=== PATIENT | male | born 1970 | race Caucasian/White ===

== ENCOUNTER 2020-03-30 12:31 | Inpatient (IN) | payer MEDICAID ==
[~2020-03-30] VITALS: Ht 182.9 cm; Wt 60.3 kg
[2020-03-30] MEDS ORDERED: SODIUM CHLORIDE 0.9% 1,000 ML IV ONE ×2 (13:08→16:30)
[2020-03-30 14:02] LABS: HEMATOCRIT. 50.9 % (42.0-52.0); HEMOGLOBIN. 18.2 g/dL (14.0-18.0); MEAN CORPUSCULAR HEMOGLOBIN 32.5 pg (28.0-32.0); MEAN CORPUSCULAR VOLUME 91.3 fL (80.0-94.0); MEAN PLATELET VOLUME 8.1 fl (7.4-10.4); PLATELET 250 x1000/uL (130-400); RED BLOOD CELL COUNT 5.58 mill/uL (4.7-6.1); RED CELL DISTRIBUTION WIDTH 14.2 % (11.6-14.6)
[2020-03-30] MEDS ORDERED: ONDANSETRON HCL 4MG/2ML INJ IV STA (14:04)
[2020-03-30] MEDS ORDERED: MORPHINE SULFATE 4 MG/ML CPJ (NOT FOR IM USE) IV STA (14:04)
[2020-03-30 14:10] LABS: CHLORIDE 99 mEq/L (98-107)
[2020-03-30 16:19] LABS: PLATELET ESTIMATE NORMAL
[2020-03-30 17:23] LABS: CLARITY URINE CLEAR (CLEAR); COLOR URINE YELLOW (YELLOW); KETONES URINE NEGATIVE (NEGATIVE); LEUKOCYTE ESTERASE URINE NEGATIVE (NEGATIVE); NITRITE URINE NEGATIVE (NEGATIVE); OCCULT BLOOD URINE 3+ (NEGATIVE); PH URINE 5.5 (4.5-8.0); PROTEIN URINE 2+ (NEGATIVE); SPECIFIC GRAVITY URINE 1.018 (1.005-1.030); UROBILINOGEN URINE 0.2 E.U./dL (0.2-1.0)
[2020-03-30] MEDS ORDERED: DIPHENHYDRAMINE 50MG/ML VIAL IV PRN (18:00)
[2020-03-30] MEDS ORDERED: ONDANSETRON HCL 4MG/2ML INJ IV PRN (18:00)
[2020-03-30] MEDS ORDERED: ACETAMINOPHEN 325MG TABLET PO PRN (18:00)
[2020-03-30] MEDS ORDERED: CLONIDINE 0.1MG TABLET PO PRN (18:00)
[2020-03-30] MEDS ORDERED: MORPHINE SULFATE 2 MG/ML CPJ (NOT FOR IM USE) IV PRN (18:00)
[2020-03-30 18:23] LABS: PHOSPHORUS 3.3 mg/dL (2.5-4.9)
[2020-03-30] MEDS ORDERED: PIPERACILLIN/TAZ 3.375G PREMIX 50 ML IV SCH (18:30)
[2020-03-30 21:42] VITALS: BP 99/63
[2020-03-30] MEDS ORDERED: TAMS-11 MT (23:59)
[2020-03-31] MEDS ORDERED: BICT1TAB PO
[2020-03-31] MEDS ORDERED: ESZO1TAB11 MT
[2020-03-31] MEDS: SODIUM CHLORIDE 0.45% 1,000 ML IV SCH ×2 (01:07→15:52)
[2020-03-31] MEDS: PIPERACILLIN/TAZOBACTAM 3.375 G in DEXT 5% WATER 100 ML IV SCH ×3 (03:39→23:16)
[2020-03-31 07:45] LABS: HEMATOCRIT. 41.9 % (42.0-52.0); HEMOGLOBIN. 14.9 g/dL (14.0-18.0); MEAN CORPUSCULAR HEMOGLOBIN 32.4 pg (28.0-32.0); MEAN CORPUSCULAR VOLUME 91.3 fL (80.0-94.0); PLATELET 220 x1000/uL (130-400); RED BLOOD CELL COUNT 4.59 mill/uL (4.7-6.1)
[2020-03-31 08:35] LABS: CHLORIDE 103 mEq/L (98-107)
[2020-03-31 08:53] LABS: LDL CHOLESTEROL 49 mg/dL (5-100)
[2020-03-31 08:55] LABS: HDL CHOLESTEROL 10 mg/dL (40-59)
[2020-03-31 14:06] LABS: PLATELET ESTIMATE NORMAL
[2020-03-31] MEDS ORDERED: POTASSIUM CHLORIDE 20MEQ TABLET SR PO NR (19:45)
[2020-03-31 20:00] VITALS: BP 100/67
[2020-03-31] MEDS: ZOLPIDEM TARTRATE 5MG TABLET PO PRN (23:22)
[2020-04-01] VITALS: BP 111/47
[2020-04-01 04:00] VITALS: BP 100/70
[2020-04-01] MEDS: PIPERACILLIN/TAZOBACTAM 3.375 G in DEXT 5% WATER 100 ML IV SCH ×3 (05:46→21:47)
[2020-04-01 08:00] VITALS: BP 110/65
[2020-04-01 12:00] VITALS: BP 105/51
[2020-04-01] MEDS ORDERED: SORBITOL 70% SOLN 30ML PO SCH (16:00)
[2020-04-01 20:00] VITALS: BP 103/67
[2020-04-01] MEDS ORDERED: SORBITOL 70% SOLN 30ML PO NR (20:00)
[2020-04-02] VITALS: BP 104/64
[2020-04-02 04:00] VITALS: BP 107/69
[2020-04-02 08:00] VITALS: BP 95/65
[2020-04-02 08:25] LABS: HEMATOCRIT. 43.6 % (42.0-52.0); HEMOGLOBIN. 15.5 g/dL (14.0-18.0); MEAN CORPUSCULAR HEMOGLOBIN 32.2 pg (28.0-32.0); MEAN CORPUSCULAR VOLUME 90.6 fL (80.0-94.0); MEAN PLATELET VOLUME 7.6 fl (7.4-10.4); PLATELET 302 x1000/uL (130-400); RED BLOOD CELL COUNT 4.81 mill/uL (4.7-6.1); RED CELL DISTRIBUTION WIDTH 13.9 % (11.6-14.6)
[2020-04-02 08:29] LABS: CHLORIDE 101 mEq/L (98-107)
[2020-04-02] MEDS: PIPERACILLIN/TAZOBACTAM 3.375 G in DEXT 5% WATER 100 ML IV SCH (08:37)
[2020-04-02 09:08] LABS: ABSOLUTE BASOPHILS 0.1 x10E3/uL (0.0-0.2); ABSOLUTE MONOCYTES 0.9 x10E3/uL (0.1-0.9); ABSOLUTE NEUTROPHILS 2.1 x10E3/uL (1.4-7.0); BASOPHILS 1 % (Not Estab.); HEMATOCRIT 42.8 % (37.5-51.0); HEMATOLOGY COMMENT Note: (.); HEMOGLOBIN 14.5 g/dL (13.0-17.7); LYMPHOCYTES 49 % (Not Estab.); MEAN CORPUSCULAR HEMOGLOBIN 31.2 pg (26.6-33.0); MEAN CORPUSCULAR HGB CONC. 33.9 g/dL (31.5-35.7); MEAN CORPUSCULAR VOLUME 92 fL (79-97); MONOCYTES 15 % (Not Estab.); NEUTROPHILS 35 % (Not Estab.); NUCLEATED RBC 1 % (0 - 0); PLATELETS 261 x10E3/uL (150-450); RBC 4.65 x10E6/uL (4.14-5.80); RED CELL DISTRIBUTION WIDTH 14.6 % (11.6-15.4); WBC 6.1 x10E3/uL (3.4-10.8)
[2020-04-02] MEDS ORDERED: POTASSIUM CHLORIDE 20MEQ TABLET SR PO SCH (09:31)
[2020-04-02 10:00] LABS: INR 1.1; PARTIAL THROMBOPLASTIN TIME 28.1 sec (23.4-31.0); PROTHROMBIN TIME 11.4 sec (9.6-11.0)
[2020-04-02] MEDS ORDERED: POTASSIUM CHLORIDE 20MEQ/PACKET PO SCH (10:00)
[2020-04-02 10:10] LABS: % CD 3 POS. LYMPHOCYTES 48.6 % (57.5-86.2); % CD 4 POS. LYMPHOCYTES 16.4 % (30.8-58.5); ABSOLUTE CD 3 1458 /uL (622-2402); ABSOLUTE CD 4 HELPER 492 /uL (359-1519); ABSOLUTE CD 8 SUPPRESSOR 930 /uL (109-897); CD4/CD8 RATIO 0.53 (0.92-3.72)
[2020-04-02] MEDS ORDERED: POTASSIUM CHLORIDE INJ 40 MEQ in DEXT 5% WATER 500 ML IV SCH (11:00)
[2020-04-02 12:00] VITALS: BP 93/65
[2020-04-02 16:00] VITALS: BP 109/72
[2020-04-02] MEDS ORDERED: LEVOFLOXACIN 500MG TABLET PO SCH (16:00)
[2020-04-02] MEDS ORDERED: MIDAZOLAM HCL 5 MG/5 ML VIAL ONE (16:05)
[2020-04-02] MEDS ORDERED: FENTANYL CITRATE/PF 50MCG/ML 2ML VIAL ONE (16:05)
[2020-04-02] MEDS ORDERED: MIDAZOLAM HCL 5 MG/5 ML VIAL IV PRN (16:05)
[2020-04-02 16:45] LABS: PLATELET ESTIMATE NORMAL
[2020-04-02] MEDS ORDERED: METHYLPREDNISOLONE SOD SUCC 125 MG/2 ML VIAL IV NR (18:00)
[2020-04-02] MEDS: MESALAMINE 400 MG CAPSULE.DR PO SCH (18:26)
[2020-04-02 19:29] LABS: HEPATITIS A AB IGM NEGATIVE (NEGATIVE)
[2020-04-02 19:58] LABS: HEPATITIS B SURFACE ANTIGEN REACTIVE PEND CONFIR
[2020-04-02 20:00] VITALS: BP 106/66
[2020-04-03] VITALS: BP 113/71
[2020-04-03 04:00] VITALS: BP 110/64
[2020-04-03 07:00] LABS: HEMATOCRIT. 45.1 % (42.0-52.0); MEAN CORPUSCULAR HEMOGLOBIN 32.3 pg (28.0-32.0); MEAN CORPUSCULAR VOLUME 91.3 fL (80.0-94.0); MEAN PLATELET VOLUME 7.3 fl (7.4-10.4); PLATELET 365 x1000/uL (130-400); RED BLOOD CELL COUNT 4.94 mill/uL (4.7-6.1); RED CELL DISTRIBUTION WIDTH 13.8 % (11.6-14.6)
[2020-04-03 07:06] LABS: CHLORIDE 102 mEq/L (98-107)
[2020-04-03 08:00] VITALS: BP 107/71
[2020-04-03] MEDS: MESALAMINE 400 MG CAPSULE.DR PO SCH ×3 (08:58→17:48)
[2020-04-03] MEDS: PREDNISONE 20MG TABLET PO SCH (08:59)
[2020-04-03 12:00] VITALS: BP 111/66
[2020-04-03 13:22] LABS: ATYPICAL LYMPHOCYTES 1; PLATELET ESTIMATE NORMAL
[2020-04-03 16:00] VITALS: BP 103/70
[2020-04-03 20:00] VITALS: BP 122/75
[2020-04-03] MEDS: ZOLPIDEM TARTRATE 5MG TABLET PO PRN (22:08)
[2020-04-04] VITALS: BP 108/65
[2020-04-04 04:00] VITALS: BP 116/74
[2020-04-04 06:28] LABS: CHLORIDE 102 mEq/L (98-107)
[2020-04-04 07:29] LABS: BASOPHILS % 0.1 % (0.0-2.0); EOSINOPHILS % 0.2 % (0.0-5.0); HEMATOCRIT. 42.5 % (42.0-52.0); HEMOGLOBIN. 14.9 g/dL (14.0-18.0); LYMPHOCYTES % 21.5 % (20.0-50.0); MEAN CORPUSCULAR HEMOGLOBIN 31.9 pg (28.0-32.0); MEAN CORPUSCULAR VOLUME 91.2 fL (80.0-94.0); MEAN PLATELET VOLUME 7.3 fl (7.4-10.4); MONOCYTES % 14.9 % (2.0-8.0); NEUTROPHILS % 63.3 % (40.0-76.0); PLATELET 396 x1000/uL (130-400); RED BLOOD CELL COUNT 4.66 mill/uL (4.7-6.1)
[2020-04-04 08:00] VITALS: BP 123/86
[2020-04-04] MEDS: PREDNISONE 20MG TABLET PO SCH (09:13)
[2020-04-04] MEDS: MESALAMINE 400 MG CAPSULE.DR PO SCH (09:13)
[2020-04-04] MEDS ORDERED: P20 PO (09:51)
[2020-04-04] MEDS ORDERED: MESA400C PO (09:51)
[2020-04-04] MEDS ORDERED: POTASSIUM CHLORIDE 20MEQ TABLET SR PO NR (10:00)
[2020-04-04 10:10] VITALS: BP 123/88
[2020-04-05 13:11] LABS: ATYPICAL pANCA <1:20 titer (Neg:<1:20); SACCHAROMYCES CEREVISIAE IGG <20.0 Units (0.0-24.9); SACCHAROMYCES CEREVISIAE IGM <20.0 Units (0.0-24.9)
[2020-04-15 09:06] LABS: *HIV-1 RNA BY PCR <20 copies/mL (.)
== END 2020-04-04 10:47 | disposition home or self-care (01) | DRG 245 ==
LOC: ER 12:31 → 6EST 17:10 → ENRESERV 20:10
PROVIDERS: ADMIT Internal Medicine; ATTEND Internal Medicine
PROC: 0DBK8ZX Excision of Ascending Colon, Via Natural or Artificial Opening Endoscopic, Diagnostic (ICD-10-PCS; principal; 2020-04-02)
PROC: 0DBL8ZX Excision of Transverse Colon, Via Natural or Artificial Opening Endoscopic, Diagnostic (ICD-10-PCS; 2020-04-02)
PROC: 0DBN8ZX Excision of Sigmoid Colon, Via Natural or Artificial Opening Endoscopic, Diagnostic (ICD-10-PCS; 2020-04-02)
PROC: 0DBP8ZX Excision of Rectum, Via Natural or Artificial Opening Endoscopic, Diagnostic (ICD-10-PCS; 2020-04-02)
PROC: 0DBM8ZX Excision of Descending Colon, Via Natural or Artificial Opening Endoscopic, Diagnostic (ICD-10-PCS; 2020-04-02)
PROC: 0DBH8ZX Excision of Cecum, Via Natural or Artificial Opening Endoscopic, Diagnostic (ICD-10-PCS; 2020-04-02)
DX: K51.90 Ulcerative colitis, unspecified, without complications (principal); N17.9 Acute kidney failure, unspecified; E86.0 Dehydration; E87.1 Hypo-osmolality and hyponatremia; E87.6 Hypokalemia; D64.9 Anemia, unspecified; E44.1 Mild protein-calorie malnutrition; R16.0 Hepatomegaly, not elsewhere classified; F12.90 Cannabis use, unspecified, uncomplicated; K59.00 Constipation, unspecified; K62.89 Other specified diseases of anus and rectum; F41.9 Anxiety disorder, unspecified; F90.9 Attention-deficit hyperactivity disorder, unspecified type; B20 Human immunodeficiency virus [HIV] disease; Z16.11 Resistance to penicillins; Z68.1 Body mass index [BMI] 19.9 or less, adult; Z87.442 Personal history of urinary calculi; Z79.899 Other long term (current) drug therapy
CPT/HCPCS: 36415; 74176; 76700; 80048; 80053; 80061; 81003; 82270; 82705; 83735; 84100; 84132; 84443; 84481; 85025; 86256; 86359; 86360; 86645; 86671; 86705; 86709; 86803; 87015; 87045; 87186; 87328; 87340; 87427; 87449; 87493; 87536; 88305; 89055; 93970; 96374; 99291; J2250; J2270; J2405; J2543; J2930; J3010; J3480; J7030; J7060; J7512